=== PATIENT | female | born 1965 | race Caucasian/White ===

== ENCOUNTER 2017-11-30 21:57 | Emergency (ER) | payer BC ==
[2017-11-30 22:18] LABS: BILIRUBIN,URINE NEGATIVE (NEGATIVE); GLUCOSE, URINE (UA) NEGATIVE (NEGATIVE); KETONES,URINE (UA) 15 mg/dL (NEGATIVE); LEUKOCYTE ESTERASE, URINE SMALL (NEGATIVE); NITRITE,URINE POSITIVE (NEGATIVE); OCCULT BLOOD,URINE LARGE (NEGATIVE); PH,URINE 5.5 PH (5.0-7.5); PROTEIN,URINE 100 mg/dL (NEGATIVE); UROBILINOGEN,URINE 0.2 (NORMAL) E.U./dL (NORMAL)
[2017-11-30 22:21] LABS: CLARITY,URINE BLOODY (CLEAR)
[2017-11-30 22:26] LABS: BACTERIA,URINE Many /HPF (None Seen); RBC,URINE TNTC /HPF (0-5); SQUAMOUS EPITHELIAL CELL,UR FEW Squamous (<= Few)
[2017-11-30] MEDS ORDERED: NITROFURANTOIN MACRO 100 MG CAPSULE PO STA (22:30)
[2017-11-30] MEDS ORDERED: PHENAZOPYRIDINE 100 MG TABLET PO STA ×2 (22:30→22:51)
--- NOTE | 2017-11-30 22:32 | ED Physician Documentation ---
PD HPI FEMALE - Stated complaint Stated Complaint: FEMALE - Chief complaint Chief Complaint: Abd Pain - History obtained from History obtained from: Patient - History of Present Illness Timing - onset: Today Timing - duration: Days (1) Timing - details: Gradual onset Pain level max: 5 Pain level max: 3 Associated symptoms: Dysuria, Urinary frequency. No: Fever, Chest/shoulder pain , Abdominal pain, Back pain, Vaginal bleeding, Vaginal discharge Similar symptoms before: Diagnosis (UTI) - Additional information Additional information: worse with urination. pyridium has helped in the past. Review of Systems Constitutional: denies: Fever GI: denies: Vomiting : denies: Discharge PD PAST MEDICAL HISTORY - Past Medical History Past Medical History: Yes Other Past Medical History: UTI - Present Medications Home Medications: Ambulatory Orders Medication Instructions Recorded Confirmed Cetirizine [ZyrTEC] 10 mg PO DAILY 11/30/17 11/30/17 Ibuprofen 1 - 2 tab PO DAILY 11/30/17 11/30/17 Naproxen Sodium [Aleve] 1 - 2 tab PO DAILY 11/30/17 11/30/17 Nitrofurantoin Monohyd/M-Cryst 100 mg PO BID #10 capsule 11/30/17 [Macrobid 100 mg Capsule] Phenazopyridine HCl [Pyridium] 200 mg PO TID PRN #6 tablet 11/30/17 - Allergies Allergies/Adverse Reactions: Allergies Allergy/AdvReac Type Severity Reaction Status Date / Time No Known Drug Allergies Allergy Verified 11/30/17 22:02 - Social History Does the pt smoke?: No Smoking Status: Never smoker Does the pt drink ETOH?: No Does the pt have substance abuse?: No - Immunizations Immunizations are current?: Yes PD ED PE NORMAL - Vitals Vital signs reviewed: Yes - General General: Alert and oriented X 3, No acute distress - HEENT HEENT: Moist mucous membranes - Neck Neck: Supple, no meningeal sign - Cardiac Cardiac: RRR - Respiratory Respiratory: No respiratory distress, Clear bilaterally - Abdomen Abdomen: Soft, Non tender, Non distended - Back Back: No CVA TTP - Derm Derm: Warm and dry - Neuro Neuro: Alert and oriented X 3 - Psych Psych: Normal mood, Normal affect Results - Vitals Vitals: Vital Signs - 24 hr 11/30/17 11/30/17 22:00 22:58 Temperature 36.0 C L 36.6 C Heart Rate 80 91 Respiratory 15 16 Rate Blood Pressure 137/64 H 150/86 H O2 Saturation 100 99 Oxygen O2 Source Room air - Labs Labs: Laboratory Tests 11/30/17 22:12 Urine Color RED/BLOODY Urine Clarity BLOODY Urine pH 5.5 Ur Specific Latta 1.025 Urine Protein 100 H Urine Glucose (UA) NEGATIVE Urine Ketones 15 H Urine Occult Blood LARGE H Urine Nitrite POSITIVE H Urine Bilirubin NEGATIVE Urine Urobilinogen 0.2 (NORMAL) Ur Leukocyte Esterase SMALL H Urine RBC TNTC H Urine WBC >25 H Ur Squamous Epith Cells FEW Squamous Urine Bacteria Many H Ur Microscopic Review INDICATED Urine Culture Comments INDICATED PD MEDICAL DECISION MAKING - ED course Complexity details: reviewed results, considered differential, d/w patient ED course: Patient is a 52-year-old female with what appears to be an uncomplicated UTI. Will place on antibiotics and Pyridium for home. She is well-appearing, nontoxic. Afebrile. Patient counseled regarding signs and symptoms for which I believe and urgent re-evaluation would be necessary. Patient with good understanding of and agreement to plan and is comfortable going home at this time This document was made in part using voice recognition software. While efforts are made to proofread this document, sound alike and grammatical errors may occur. Departure - Departure Disposition: 01 Home, Self Care Clinical Impression: Urinary tract infection Qualifiers: Urinary tract infection type: acute cystitis Hematuria presence: without hematuria Qualified Code(s): N30.00 - Acute cystitis without hematuria Condition: Good Instructions: ED UTI Cystitis Female Follow-Up: lAbert Lira DO [Primary Care Provider] - As Needed Prescriptions: Nitrofurantoin Monohyd/M-Cryst [Macrobid 100 mg Capsule] 100 mg PO BID #10 capsule Phenazopyridine HCl [Pyridium] 200 mg PO TID PRN #6 tablet PRN Reason: dysuria Comments: Take all antibiotics until gone. Return if you worsen. Discharge Date/Time: 11/30/17 23:06
[2017-11-30 22:59] VITALS: BP 150/86
== END 2017-11-30 23:06 | disposition home or self-care (01) ==
LOC: ED 21:57
DX: N30.00 Acute cystitis without hematuria (principal)
CPT/HCPCS: 81001; 87086; 87181; 99283; A9270; 81003

== ENCOUNTER 2019-05-14 08:00 | Outpatient (CLI) | payer BC | END 2019-05-14 23:59 | disposition home or self-care (01) | LOC: LAB.R 08:00 | PROVIDERS: ATTEND Family Medicine | DX: N39.0 Urinary tract infection, site not specified (principal) | CPT/HCPCS: 87086; 87181 ==

== ENCOUNTER 2019-09-04 13:00 | Outpatient (CLI) | payer BC | END 2019-09-04 23:59 | disposition home or self-care (01) | LOC: LAB.R 13:00 | PROVIDERS: ATTEND Family Medicine | DX: N39.0 Urinary tract infection, site not specified (principal) | CPT/HCPCS: 87086 ==

== ENCOUNTER 2019-12-16 07:00 | Outpatient (CLI) | payer BC, OTHER | END 2019-12-16 23:59 | disposition home or self-care (01) | LOC: LAB.R 07:00 | PROVIDERS: ATTEND Family Medicine | DX: N39.0 Urinary tract infection, site not specified (principal); N81.10 Cystocele, unspecified | CPT/HCPCS: 87086 ==

== ENCOUNTER 2021-08-17 08:00 | Outpatient (CLI) | payer OTHER | END 2021-08-17 23:59 | disposition home or self-care (01) | LOC: LAB.WCP 08:00 | PROVIDERS: ATTEND Family Medicine | DX: U07.1 COVID-19 (principal) ==

== ENCOUNTER 2022-01-09 08:11 | Day surgery (SDC) | payer OTHER ==
[2022-01-09] MEDS ORDERED: LACTATED RINGERS 1,000 ML IV ONE ×2 (08:18→12:38)
[2022-01-09] MEDS ORDERED: SCOPOLAMINE PATCH TOP ONE (09:36)
[2022-01-09] MEDS ORDERED: ONDANSETRON 4 MG/2 ML VIAL IVP PRN ×2 (09:40→12:32)
[2022-01-09] MEDS ORDERED: MORPHINE 2 MG/ML CARPUJECT IVP PRN (09:40)
[2022-01-09] MEDS ORDERED: ePHEDrine 50 MG/ML VIAL IVP PRN (09:40)
[2022-01-09] MEDS ORDERED: ATROPINE ABBOJECT 1 MG/10 ML SYRINGE IVP PRN (09:40)
[2022-01-09] MEDS ORDERED: HYDROmorphone 0.5 MG/0.5 ML SYRINGE IVP PRN (09:40)
[2022-01-09] MEDS ORDERED: NALOXONE 0.4 MG/ML VIAL IVP PRN (09:40)
[2022-01-09] MEDS ORDERED: METOCLOPRAMIDE 10 MG/2 ML VIAL IVP PRN (09:40)
[2022-01-09] MEDS ORDERED: fentaNYL 100 MCG/2 ML VIAL IVP PRN (09:40)
--- NOTE | 2022-01-09 09:40 | ANESTHESIA ---
Pre-Anesthesia VS, & Labs - Diagnosis L breast CA - Procedure L breast lumpectomy with axillary node dissection Vital Signs: Temp Pulse Resp BP Pulse Ox 36.4 C L 89 16 155/83 H 98 01/09/22 08:26 01/09/22 08:26 01/09/22 08:26 01/09/22 08:26 01/09/22 08:26 Height: 5 ft 6 in Weight (kg): 104 kg Body Mass Index: 37.0 BMI Classification: Obese - NPO >8 hours - Is Patient ?: No - Lab Results Current Lab Results: Laboratory Tests 01/09/22 08:49: POC Whole Bld Glucose 108 H Home Medications and Allergies Home Medications: Ambulatory Orders Anastrozole 1 mg PO DAILY 12/30/21 Oxybutynin [Ditropan] 5 mg PO DAILY 12/30/21 Anastrozole 1 mg PO DAILY 12/30/21 Oxybutynin [Ditropan] 5 mg PO DAILY 12/30/21 Allergies/Adverse Reactions: Allergies Allergy/AdvReac Type Severity Reaction Status Date / Time No Known Drug Allergies Allergy Verified 11/30/17 22:02 Anes History & Medical History - Anesthetic History Anesthesia Complications: reports: No previous complications Family history of Anesthesia Complications: Denies Family history of Malignant Hyperthermia: Denies - Medical History Cardiovascular: reports: None Pulmonary: reports: None Gastrointestinal: reports: None Urinary: reports: None Musculoskeletal: reports: None Endocrine/Autoimmune: reports: Other Skin: reports: None Smoking Status: Unknown if ever smoked History of Cancer?: Yes (L breast CA) - Surgical History General: reports: Other Gynecologic: reports: Hysterectomy Exam General: Alert, Oriented x3, Cooperative Dental: WNL Mouth Openin Fingerbreadth Neck Mobility: Normal Mallampati classification: I Thyromental Distance: 4-6 cm Respiratory: Lungs clear Cardiovascular: Regular rate Plan Anesthesia Type: General Consent for Procedure(s) Verified and Reviewed: Yes Code Status: Attempt Resuscitation ASA classification: 3-Severe systemic disease Is this case an emergency?: No
[2022-01-09] MEDS ORDERED: SCOPOLAMINE PATCH TOP SCH (10:00)
[2022-01-09] MEDS ORDERED: LACTATED RINGERS 1,000 ML IV SCH (10:00)
[2022-01-09] MEDS ORDERED: PROPOFOL 200 MG/20 ML VIAL IVP ONE (10:19)
[2022-01-09] MEDS ORDERED: LIDOCAINE-MPF 2% 5 ML VIAL ONE (10:19)
[2022-01-09] MEDS ORDERED: fentaNYL 100 MCG/2 ML VIAL ONE (11:22)
[2022-01-09] MEDS ORDERED: MIDAZOLAM 2 MG/2 ML VIAL ONE (11:22)
[2022-01-09] MEDS ORDERED: LIDOCAINE 2%-EPI 1:100000 20 ML MDV ONE ×2 (11:31→12:14)
[2022-01-09] MEDS ORDERED: BUPIVACAINE 0.5% PF 10 ML VIAL ONE ×3 (11:31→12:14)
[2022-01-09] MEDS ORDERED: ONDANSETRON 4 MG/2 ML VIAL ONE (11:42)
[2022-01-09] MEDS ORDERED: DEXAMETHASONE 4 MG/ML VIAL ONE (11:42)
[2022-01-09] MEDS ORDERED: ceFAZolin 1 GM VIAL ONE (11:44)
[2022-01-09] MEDS ORDERED: BUPIVACAINE 0.5% PF 30 ML VIAL SUBQ ONE ×2 (11:55)
[2022-01-09] MEDS ORDERED: LIDOCAINE 2%-EPI 1:100000 20 ML MDV SUBQ ONE ×2 (11:55)
[2022-01-09] MEDS ORDERED: HYDROmorphone 1 MG/ML CARPUJECT ONE (12:11)
[2022-01-09] MEDS ORDERED: ROCURONIUM 50 MG/5 ML VIAL ONE (12:19)
[2022-01-09] MEDS ORDERED: oxyCODONE 5 MG TABLET PO PRN (12:32)
[2022-01-09] MEDS ORDERED: ACETAMINOPHEN 325 MG TABLET PO PRN (12:32)
[2022-01-09] MEDS ORDERED: IBUPROFEN 600 MG TABLET PO PRN (12:32)
--- NOTE | 2022-01-09 12:32 | OPERATIVE REPORT ---
Operative Report - General Planned Procedure: Left breast lumpectomy and sentinel node dissection Pre-Op Diagnosis: Left breast cancer Procedure Performed: Left breast lumpectomy and sentinel node dissection Post Op Diagnosis: Left breast cancer - Procedure Note Primary Surgeon: Richard Anesthesia Provider: ALVA Roa Pathology: 1. Boswell node number 1-10-second count of 8824 2. Boswell node number 2-10-second count of 17,563 3. Left breast mass-Marked with a short stitch superior, long stitch lateral, and double stitch anterior. Estimated Blood Loss (mL): 10 Indications: Biopsy-proven left breast cancer Left axillary lymph node biopsy negative for tumor Findings: 2 sentinel nodes with counts noted above Complications: None apparent - Other Other Information/Narrative: After obtaining informed consent, the patient was brought to the operating room and placed in the supine position on the operating table. Following successful induction of general endotracheal anesthesia, appropriate padding of all bony prominences, and placement of appropriate monitors, the left breast was prepped and draped in the standard surgical fashion. A timeout was held per scope protocol. All elements of the surgical safety checklist were followed before, during, and after the procedure. We began the procedure with a sentinel node dissection. The site of the brightest node had been marked in radiology with 2 skin marker axis. The neoprobe was used to identify the site of greatest uptake at level 2 in the patient's axilla. The patient is quite thin and has minimal axillary tissue. An incision was created over this area of uptake and carried through the skin and subcutaneous tissue to enter the axillary node packet. The first sentinel node was easily identified. It was large and firm. It was carefully dissected free from surrounding stop structures sharply, all lymphatics and vasculature were addressed with clips prior to division. The node was liberated into the field. 10-second counts are recorded. Survey of the axilla revealed continued high uptake. A second sentinel node was identified just posterior to the first. Again it was addressed in the same manner. It was gently retracted and sharply freed from the surrounding structures. All lymphatics and vasculature were dressed with hemoclips and the node was liberated. It was delivered into the field and a 10-second count was obtained. Survey of the axilla did not reveal any additional areas of increased uptake. Background in the axilla was checked and found to be 13-16. Background in the room was 0. The axillary incision was then closed in 2 layers with Vicryl and Monocryl sutures. We turned our attention to the left breast mass. The area over the mass and in the periareolar region was infiltrated with a mixture of local anesthetics to cry to field block. A periareolar incision was then created in the Palpable mass carefully dissected sharply from the subcutaneous tissue anteriorly and from the muscle posteriorly. The retromammary bursa was not adherent to the underlying muscle. The mass was reviewed moved in a single piece in a medial to lateral fashion. It was marked with a short stitch superior, long stitch lateral, and double stitch anterior. It was finally liberated sharply and delivered into the field. The wound was checked for hemostasis. It was irrigated again with warm water. The biopsy cavity was then marked with clips peripherally and centrally.The wound was then closed in 2 layers with Vicryl and Monocryl sutures. All sponge, needle, and instrument counts were correct at the conclusion of the case. The patient was let awakened anesthesia without difficulty and taken to the postanesthesia care unit in good condition.
[2022-01-09 14:11] VITALS: BP 131/79
--- NOTE | 2022-01-09 15:17 | ANESTHESIA POST OP EVALUATION ---
Anesthesia Post Eval - Post Anesthesia Eval Vitals: Last Vital Signs Temp 36.3 C L 01/09/22 14:10 Pulse 71 01/09/22 14:10 Resp 16 01/09/22 14:10 BP 131/79 H 01/09/22 14:10 Pulse Ox 98 01/09/22 14:10 CV Function Including HR & BP: Stable Pain Control: Satisfactory Nausea & Vomiting: Negative Mental Status: Baseline Respiratory Status: Airway Patent Hydration Status: Satisfactory Anesthesia Complications: None
--- NOTE | 2022-01-10 09:36 | Nuclear Medicine Report ---
PROCEDURE: Lymph Node Scintigraphy INDICATIONS: LT BREAST CA RADIOPHARMACEUTICAL: 0.5-1.0 mCi Millipore filtered Tc-99m sulfur colloid. TECHNIQUE: The area around the nipple was prepped and draped in a sterile fashion. Tc-99m sulfur colloid was in jected intra-dermally in the outer edge of the areola in the left breast. Images were obtained subse quently. A body contour outline was obtained. FINDINGS: There are 2 lymph node(s) in the ipsilateral axilla, which is marked on the skin and the images for [facility]. Possible intramammary lymph nodes. IMPRESSION: Two lymph nodes in the left axilla. Reviewed by: Rory Rosario MD on 01/10/2022 9:35 AM PST Approved by: Rory Rosario MD on 01/10/2022 9:35 AM [facility] [[email or web address]] Station ID: [id number]
--- NOTE | 2022-01-16 08:57 | XRAY Report ---
SPECIMEN LEFT BREAST: 01/09/2022 CLINICAL: Left breast specimen. No prior exams were available for correlation. A lumpectomy specimen was imaged for the previous biopsy site located in the left breast at 6 o'cloc k posterior depth. IMPRESSION: SPECIMEN The imaged specimen includes a biopsy clip. Future imaging is recommended as follows: 03/23/2022 follow-up left ultrasound. This exam was interpreted at Station ID: [id number]. Anthony ventura/penrad:01/16/2022 08:32:26 copy to: Annamarie Che Mammogram recall n/a B
== END 2022-01-09 08:12 | disposition home or self-care (01) ==
LOC: SDS 08:11
PROVIDERS: ATTEND Surgery
PROC: 0HBU0ZZ Excision of Left Breast, Open Approach (ICD-10-PCS; principal; 2022-01-09 10:45)
PROC: 07B60ZX Excision of Left Axillary Lymphatic, Open Approach, Diagnostic (ICD-10-PCS; 2022-01-09 10:45)
DX: C50.912 Malignant neoplasm of unspecified site of left female breast (principal); E66.9 Obesity, unspecified; Z68.37 Body mass index [BMI] 37.0-37.9, adult; E11.9 Type 2 diabetes mellitus without complications; Z79.84 Long term (current) use of oral hypoglycemic drugs
CPT/HCPCS: 19301; 38525; 78195; J1170; J3490; J7120

== ENCOUNTER 2022-02-03 13:22 | Outpatient (CLI) | payer OTHER ==
--- NOTE | 2022-02-03 13:59 | XRAY Report ---
PROCEDURE: Foot 3 View LT INDICATIONS: PAIN IN LEFT FOOT TECHNIQUE: 3 views of the foot were acquired. COMPARISON: None. FINDINGS: BONES: Diffuse osteopenia. No acute, displaced fracture or dislocation. Hallux valgus. Joint space lo ss with osteophytosis and fibrocystic change of the first MTP. Small calcaneal enthesophytes. SOFT TISSUES: Dorsal soft tissue prominence about the midfoot. IMPRESSION: 1.No acute osseous abnormality. Reviewed by: Yuri Hyde MD on 02/03/2022 1:58 PM PDT Approved by: Yuri Hyde MD on 02/03/2022 1:58 PM PDT Station ID: [id number]
== END 2022-02-03 23:59 | disposition home or self-care (01) ==
LOC: DI.N 13:22
PROVIDERS: ATTEND Nurse Practitioner Family
DX: M79.672 Pain in left foot (principal)

== ENCOUNTER 2022-02-13 08:41 | Outpatient (CLI) | payer OTHER ==
--- NOTE | 2022-02-13 11:07 | Nuclear Medicine Report ---
PROCEDURE: MUGA Cardiac Imaging INDICATIONS: L BREAST CA RADIOPHARMACEUTICAL: 30.5 mCi Tc-99m labeled autologous red cells IV. TECHNIQUE: After intravenous administration of autologous labeled WBC, TURKMEN views of the chest were obtained. A region of interest was drawn around the left ventricle to calculate left ventricle ejection fraction. COMPARISON: None available. FINDINGS: The heart and great vessels are of normal size and configuration. The left ventricle contracts manolo lly, with left ventricle ejection fraction of 57.1%. Normal ejection fractions for this study are ab ove 55%. A drop from baseline ejection fraction of greater than 10 percentage points or to below 45% on follow-up studies may be considered significant. IMPRESSION: The left ventricular ejection fraction is 57.1%. Reviewed by: Rory Rosario MD on 02/13/2022 11:06 AM PDT Approved by: Rory Rosario MD on 02/13/2022 11:06 AM PDT Station ID: [id number]
== END 2022-02-13 08:42 | disposition home or self-care (01) ==
LOC: DI 08:41
PROVIDERS: ATTEND Internal Medicine Hematology & Oncology
DX: C50.812 Malignant neoplasm of overlapping sites of left female breast (principal)
CPT/HCPCS: 78803; A9512; A9538

== ENCOUNTER 2022-02-14 07:15 | Day surgery (SDC) | payer OTHER ==
[2022-02-14] MEDS ORDERED: LACTATED RINGERS 1,000 ML IV ONE ×2 (07:50→10:24)
--- NOTE | 2022-02-14 08:04 | ANESTHESIA ---
Pre-Anesthesia VS, & Labs - Diagnosis left breast cancer - Procedure Portacath placement Vital Signs: Temp Pulse Resp BP Pulse Ox 36.7 C 79 20 146/74 H 99 02/14/22 07:32 02/14/22 07:32 02/14/22 07:32 02/14/22 07:32 02/14/22 07:32 Height: 5 ft 6 in Weight (kg): 104 kg Body Mass Index: 37.0 BMI Classification: Obese - NPO >8 hours - Is Patient ?: No - Lab Results Current Lab Results: Laboratory Tests 02/14/22 07:43: POC Whole Bld Glucose 119 H Lab results reviewed: Yes Home Medications and Allergies Home Medications: Ambulatory Orders Acetaminophen [Tylenol] 650 mg PO Q6H PRN 02/07/22 Cetirizine [ZyrTEC] 10 mg PO DAILY 02/07/22 Ibuprofen [Motrin] 600 mg PO DAILY 02/14/22 metFORMIN [Glucophage] 500 mg PO BIDWM 02/14/22 Anastrozole 1 mg PO DAILY 12/30/21 Oxybutynin [Ditropan] 5 mg PO BID 12/30/21 Lidocaine/Prilocain 2.5% Cream [Emla 2.5% Cream] 1 applic TOP PRN PRN 02/06/22 OLANZapine [Olanzapine] 5 mg PO DAILY PM 02/06/22 Ondansetron Odt [Zofran Odt] 8 mg TL Q8HR PRN 02/06/22 Prochlorperazine Maleate [Compazine] 10 mg PO Q6HR PRN 02/06/22 dexAMETHasone [Decadron] 4 mg PO BID 02/06/22 Acetaminophen [Tylenol] 650 mg PO Q6H PRN 02/07/22 Cetirizine [ZyrTEC] 10 mg PO DAILY 02/07/22 Ibuprofen [Motrin] 600 mg PO DAILY 02/14/22 metFORMIN [Glucophage] 500 mg PO BIDWM 02/14/22 Allergies/Adverse Reactions: Allergies Allergy/AdvReac Type Severity Reaction Status Date / Time No Known Drug Allergies Allergy Verified 11/30/17 22:02 Anes History & Medical History - Anesthetic History Anesthesia Complications: reports: No previous complications Family history of Anesthesia Complications: Denies Family history of Malignant Hyperthermia: Denies - Medical History Cardiovascular: reports: None Pulmonary: reports: None Gastrointestinal: reports: None Urinary: reports: None Musculoskeletal: reports: None Endocrine/Autoimmune: reports: Other Skin: reports: None Smoking Status: Unknown if ever smoked - Surgical History General: reports: Other Gynecologic: reports: Hysterectomy Exam General: Alert, Oriented x3, Cooperative, No acute distress Dental: WNL Mouth Openin Fingerbreadth Plan Anesthesia Type: General, MAC, Total IV Consent for Procedure(s) Verified and Reviewed: Yes Code Status: Attempt Resuscitation ASA classification: 2-Mild systemic disease Is this case an emergency?: No
[2022-02-14] MEDS ORDERED: BUPIVACAINE 0.25% PF 30 ML VIAL ONE (08:30)
[2022-02-14] MEDS ORDERED: LIDOCAINE 2%-EPI 1:100000 20 ML MDV ONE (08:42)
[2022-02-14] MEDS ORDERED: MIDAZOLAM 2 MG/2 ML VIAL ONE (08:47)
[2022-02-14] MEDS ORDERED: ONDANSETRON 4 MG/2 ML VIAL ONE (08:47)
[2022-02-14] MEDS ORDERED: PROPOFOL 200 MG/20 ML VIAL IVP ONE (08:47)
[2022-02-14] MEDS ORDERED: DEXAMETHASONE 4 MG/ML VIAL ONE (08:47)
[2022-02-14] MEDS ORDERED: fentaNYL 100 MCG/2 ML VIAL ONE (08:47)
[2022-02-14] MEDS ORDERED: LIDOCAINE 2%-EPI 1:100000 20 ML MDV SUBQ ONE (09:31)
[2022-02-14] MEDS ORDERED: BUPIVACAINE 0.25% PF 30 ML VIAL SUBQ ONE (09:31)
[2022-02-14] MEDS ORDERED: ceFAZolin 1 GM VIAL ONE (09:33)
--- NOTE | 2022-02-14 10:24 | XRAY Report ---
PROCEDURE: OR Port-A-Cath INDICATIONS: PORT TECHNIQUE: 2 fluoroscopic images of the chest COMPARISON: None. FINDINGS: A right portacatheter is seen with distal portion projecting over the SVC region. IMPRESSION: Right lamonte catheter as detailed above. Reviewed by: Yuri Hyde MD on 02/14/2022 10:22 AM PDT Approved by: Yuri Hyde MD on 02/14/2022 10:22 AM PDT Station ID: [id number]
[2022-02-14] MEDS ORDERED: NALOXONE 0.4 MG/ML VIAL IVP PRN (10:28)
[2022-02-14] MEDS ORDERED: ATROPINE ABBOJECT 1 MG/10 ML SYRINGE IVP PRN (10:28)
[2022-02-14] MEDS ORDERED: MORPHINE 2 MG/ML CARPUJECT IVP PRN (10:28)
[2022-02-14] MEDS ORDERED: ePHEDrine 50 MG/ML VIAL IVP PRN (10:28)
[2022-02-14] MEDS ORDERED: METOCLOPRAMIDE 10 MG/2 ML VIAL IVP PRN (10:28)
[2022-02-14] MEDS ORDERED: HYDROmorphone 0.5 MG/0.5 ML SYRINGE IVP PRN ×2 (10:28→10:59)
[2022-02-14] MEDS ORDERED: ONDANSETRON 4 MG/2 ML VIAL IVP PRN ×2 (10:28→10:59)
[2022-02-14] MEDS ORDERED: fentaNYL 100 MCG/2 ML VIAL IVP PRN (10:28)
--- NOTE | 2022-02-14 10:57 | OPERATIVE REPORT ---
Operative Report - General Procedure Date: 02/14/22 Planned Procedure: Right subclavian Port-A-Cath placement Pre-Op Diagnosis: Left breast cancer requiring chemotherapy Procedure Performed: Right subclavian Port-A-Cath placement Post Op Diagnosis: Same - Procedure Note Primary Surgeon: Dereje Kapoor MD Anesthesia Provider: Renetta Hoffman CRNA Anesthesia Technique: General LMA, Local (10 mL of 2% lidocaine with epinephrine and 10 mL of 0.25% Marcaine) IV Fluids (mL): 1,000 Estimated Blood Loss (mL): 2 Drain/Tube Type: Other (None.) Indications: As above. Findings: Fluoroscopy confirmed good placement of the catheter in the supra cardiac vena cava as well as there was good and easy blood return and flush. Complications: None. - Other Other Information/Narrative: After verbal and written informed consent was obtained detailing the operation, the alternatives the operation including no operation, risks of infection, bleeding requiring transfusion with its risks, nerve injury, and and after I met with the patient confirming the surgery and the site of surgery, the patient was brought to the operative suite and placed supine on the operating table. Great care was taken to avoid pressure points to prevent pressure necrosis or nerve injury. Monitoring devices were applied along with TEDs and pneumatic compression stockings (to prevent DVT). The patient received preoperative antibiotics for surgical prophylaxis. Renetta Hoffman CRNA sedated and anesthetized the patient for the entire procedure. The patient was prepped and draped in the usual sterile manner. A "time in" then confirmed that the patient was identified with 3 identifiers (name, date, and medical record number), the history and physical was updated and in the chart, the signed consent confirming the procedure was in the chart, the patient was in the correct position, the aforementioned prophylactic measures were in place or given, we had the correct personnel and equipment to complete the procedure and that anesthesia and the surgical team were given an opportunity to express any concerns. With the agreement of everyone in the room we proceeded with the operation. After anesthetizing the left subclavian area with the local mix, the finder needle was inserted into the left subclavian vein and with good blood return the syringe was removed and a wire placed. The wire went to 30 cm with some cardiac irritability confirming placement down towards the heart. The needle was removed and the needle insertion site widened with the aid of a scalpel and a Jodi. The port site was selected further down and slightly laterally on the chest wall and this was anesthetized again using half percent Marcaine. A transverse incision was made and dissection was carried out down to the fascia using Bovie electrocautery. Hemostasis was obtained using Bovie electrocautery. The pouch was then created primarily using blunt dissection and again using Bovie electrocautery for hemostasis. The catheter was obtained and attached to the passer. The passer was then used to pass the catheter from the needle insertion site to the port site. The catheter was then measured against the anterior chest wall and cut at 24 cm which allowed for the tip to be 2 cm below the manubrial-sternal junction. The catheter was then secured to the port using the supplied hub. The port and catheter were then flushed using heparinized saline. The port was put in position in the pouch and secured to the fascia using a 3-0 Prolene suture. Great care was taken to ensure that the catheter was not kinked. The dilator was placed over the wire taking great care to ensure that the wire was always visible. The dilator was removed and wiped down using a saline soaked gauze. The dilator and sheath were then placed over the wire again taking great care to ensure that the wire was always visible. The dilator and wire were then removed leaving the sheath in position. The catheter was then placed into the sheath using DeBakey pickups and while holding the catheter in place the sheath was torn away leaving the catheter in position. A Last needle was then used to access the port and there was excellent blood return and easy flush. Fluoroscopy showed the catheter to be in good position in the supracardiac vena cava without pneumothorax. The port site subcutaneous tissues were approximated using an interrupted 3-0 Vicryl suture. The skin incision was approximated with 4-0 Monocryl in a subcuticular fashion. The skin was cleaned of its prep and Dermabond was applied. At this point a timeout was performed that confirmed that all counts were correct x2, the procedure that was performed, the blood loss, the IV fluids administered, the patient's condition, and any concerns of the operating team had. Having tolerated the procedure well, the patient was taken recovery room in good and stable condition. The plan is for outpatient discharge when the patient is adequately recovered. This document was created in part using voice recognition technology. Because of the inherent limitations of the system, occasional same sounding word substitutions and grammatical errors do occur and persist despite proofreading. Please read this document for content.
[2022-02-14] MEDS ORDERED: HYDROcod/ACETAM 5/325 MG TABLET PO PRN (10:59)
[2022-02-14] MEDS ORDERED: LACTATED RINGERS 1,000 ML IV SCH (11:00)
--- NOTE | 2022-02-14 11:31 | ANESTHESIA POST OP EVALUATION ---
Anesthesia Post Eval - Post Anesthesia Eval Vitals: Last Vital Signs Temp 36.7 C 02/14/22 11:15 Pulse 68 02/14/22 11:15 Resp 17 02/14/22 11:15 BP 131/72 H 02/14/22 11:15 Pulse Ox 96 02/14/22 11:15 CV Function Including HR & BP: Stable Pain Control: Satisfactory Nausea & Vomiting: Negative Mental Status: Baseline Respiratory Status: Airway Patent Hydration Status: Satisfactory Anesthesia Complications: None
[2022-02-14 11:46] VITALS: BP 135/75
--- NOTE | 2022-02-14 13:28 | XRAY Report ---
PROCEDURE: Post Port Placement 1V CXR INDICATIONS: POST PORT PLACEMENT TECHNIQUE: One view of the chest was acquired. COMPARISON: None FINDINGS: Surgical changes and devices: Right-sided Port-A-Cath tip near the cavoatrial junction Lungs and pleura: No pleural effusions or pneumothorax. Lungs are clear. Mediastinum: Mediastinal contours appear normal. Heart size is normal. Bones and chest wall: No suspicious bony lesions. Overlying soft tissues appear unremarkable. IMPRESSION: Right-sided Port-A-Cath in place without pneumothorax. Reviewed by: Eric Fairbanks MD on 02/14/2022 12:26 PM [facility]AS[facility] Approved by: Eric Fairbanks MD on 02/14/2022 12:26 PM [facility] Station ID: [id number]
== END 2022-02-14 07:16 | disposition home or self-care (01) ==
LOC: SDS 07:15
PROVIDERS: ATTEND Surgery
DX: C50.912 Malignant neoplasm of unspecified site of left female breast (principal); E66.9 Obesity, unspecified; Z68.37 Body mass index [BMI] 37.0-37.9, adult; Z86.16 Personal history of COVID-19
CPT/HCPCS: 36561; C1788; J7120

== ENCOUNTER 2022-02-27 12:48 | Emergency (ER) | payer OTHER ==
--- OUTSIDE RECORDS SUMMARY | 2022-02-27 13:15 | EXTERNAL MEDICAL SUMMARY RPT | Continuity of Care Document ---
:1965 Author Organization [facility] Address [address] [place] [address] Phone Care Team Providers Name Role Phone Scheidt Unavailable Unavailable Allergies No information. Encounters No information. Medications No information. Problems date description facility [id number] Malignant neoplasm of unspecified site of [facility] breast Results No information.
[2022-02-27] MEDS ORDERED: SODIUM CHLORIDE 0.9% 1,000 ML IV STA (15:02)
--- NOTE | 2022-02-27 15:05 | ED Physician Documentation ---
History of Present Illness - Stated complaint Stated Complaint: CHEST DISCOMFORT - Chief complaint Chief Complaint: Cardiac - History obtained from History obtained from: Patient - History of Present Illness Timing: Today Pain level max: 0 Pain level now: 0 - Additonal information Additional information: Patient is a 56-year-old female, currently undergoing chemotherapy for breast cancer. First chemotherapy was last week. Came into the [facility] [place] clinic for chemotherapy today and was complaining of "a sensation of waves" in her chest. Nothing makes it better or worse. No pain. No shortness of breath. No nausea or vomiting. No headache. No neck pain. She states that she has been tolerating her first round of chemotherapy well. No significant side effects. No cardiac history. She states she is diabetic but does not check her blood sugars at home. They did not check her blood sugar today. Patient states that she is asymptomatic if she is sitting down, but will feel the wavelike sensation if she stands up. Review of Systems Constitutional: denies: Fever, Chills Nose: denies: Rhinorrhea / runny nose, Congestion Respiratory: denies: Cough GI: denies: Abdominal Pain, Nausea, Vomiting, Diarrhea Skin: denies: Rash Musculoskeletal: denies: Neck pain, Back pain Neurologic: denies: Headache PD PAST MEDICAL HISTORY - Past Medical History Cardiovascular: None Respiratory: None Endocrine/Autoimmune: Other GI: None : None HEENT: Chronic vision loss Psych: None Musculoskeletal: None Derm: None - Past Surgical History General: Other /[employer]: Hysterectomy - Present Medications Home Medications: Ambulatory Orders Medication Instructions Recorded Confirmed Anastrozole 1 mg PO DAILY 12/30/21 02/20/22 Oxybutynin [Ditropan] 5 mg PO BID 12/30/21 02/20/22 Lidocaine/Prilocain 2.5% Cream 1 applic TOP PRN PRN 02/06/22 02/20/22 [Emla 2.5% Cream] OLANZapine [Olanzapine] 5 mg PO DAILY PM 02/06/22 02/20/22 Ondansetron Odt [Zofran Odt] 8 mg TL Q8HR PRN 02/06/22 02/20/22 Prochlorperazine Maleate 10 mg PO Q6HR PRN 02/06/22 02/20/22 [Compazine] dexAMETHasone [Decadron] 4 mg PO BID 02/06/22 02/20/22 Acetaminophen [Tylenol] 650 mg PO Q6H PRN 02/07/22 02/20/22 Cetirizine [ZyrTEC] 10 mg PO DAILY 02/07/22 02/20/22 Docusate Sodium 250Mg Capsule 250 mg PO DAILY #10 cap 02/14/22 02/20/22 [Colace 250Mg Capsule] HYDROcod/ACETAM 5/325 [[place] 5/325] 1 each PO Q4H #5 tablet 02/14/22 02/20/22 Ibuprofen [Motrin] 600 mg PO DAILY 02/14/22 02/20/22 metFORMIN [Glucophage] 500 mg PO BIDWM 02/14/22 02/20/22 - Allergies Allergies/Adverse Reactions: Allergies Allergy/AdvReac Type Severity Reaction Status Date / Time No Known Drug Allergies Allergy Verified 02/27/22 13:08 - Social History Does the pt smoke?: No Smoking Status: Never smoker Does the pt drink ETOH?: No Does the pt have substance abuse?: No - Immunizations Immunizations are current?: Yes PD ED PE NORMAL - Vitals Vital signs reviewed: Yes - General General: Alert and oriented X 3, No acute distress - HEENT HEENT: Moist mucous membranes - Neck Neck: Supple, no meningeal sign - Cardiac Cardiac: RRR - Respiratory Respiratory: No respiratory distress, Clear bilaterally - Abdomen Abdomen: Soft, Non tender, Non distended - Derm Derm: Warm and dry - Extremities Extremities: No edema, No calf tenderness / cord - Neuro Neuro: Alert and oriented X 3 Results - Vitals Vitals: Vital Signs - 24 hr 02/27/22 02/27/22 02/27/22 12:57 16:14 18:00 Temperature 36.6 C 36.6 C Heart Rate 126 H 89 98 Respiratory 16 22 16 Rate Blood Pressure 139/79 H 127/78 167/80 H O2 Saturation 96 98 99 02/27/22 20:01 Temperature 36.6 C Heart Rate 110 H Respiratory 16 Rate Blood Pressure 128/76 O2 Saturation 98 Oxygen O2 Source Room air - EKG (time done) 1302 Rate: Rate (enter#) (119) Rhythm: Sinus tachycardia [place]: Normal Intervals: Normal [place] QRS: Normal Ischemia: T wave inversion (III) Compare to prior EKG: Old EKG unavailable - Labs Labs: Laboratory Tests 02/27/22 02/27/22 02/27/22 15:08 15:08 15:08 WBC 4.3 L RBC 4.25 Hgb 12.7 Hct 38.0 MCV 89.4 MCH 29.9 MCHC 33.4 RDW 12.8 Plt Count 142 MPV 9.5 Neut # (Auto) Not Reportable Lymph # (Auto) Not Reportable Sebastian # (Auto) Not Reportable Eos # (Auto) Not Reportable Baso # (Auto) Not Reportable Absolute Nucleated RBC Not Reportable Total Counted 100 Band Neuts % (Manual) 3 Reactive Lymphs % (Man) 13 Abnorm Lymph % (Manual) 0 Nucleated RBC % Not Reportable Neutrophils # (Manual) 1.4 L Lymphocytes # (Manual) 2.0 Monocytes # (Manual) 0.6 Eosinophils # (Manual) 0.3 Basophils # (Manual) 0.0 Differential Comment MANUAL DIFFERENTIAL WBC Morphology NORMAL APPEARANCE Platelet Estimate NORMAL (130-450,000) Platelet Morphology NORMAL APPEARANCE RBC Morph Micro Appear NORMAL APPEARANCE Sodium 136 Potassium 4.3 Chloride 100 L Carbon Dioxide 26 Anion Gap 10.0 BUN 13 Creatinine 0.6 Estimated GFR (MDRD) 103 Glucose 117 H POC Whole Bld Glucose Calcium 9.3 Total Bilirubin 0.6 AST 11 ALT 16 Alkaline Phosphatase 76 Troponin I High Sens 14.4 Total Protein 6.5 L Albumin 3.7 Globulin 2.8 Albumin/Globulin Ratio 1.3 Lipase 27 02/27/22 15:26 WBC RBC Hgb Hct MCV MCH MCHC RDW Plt Count MPV Neut # (Auto) Lymph # (Auto) Sebastian # (Auto) Eos # (Auto) Baso # (Auto) Absolute Nucleated RBC Total Counted Band Neuts % (Manual) Reactive Lymphs % (Man) Abnorm Lymph % (Manual) Nucleated RBC % Neutrophils # (Manual) Lymphocytes # (Manual) Monocytes # (Manual) Eosinophils # (Manual) Basophils # (Manual) Differential Comment WBC Morphology Platelet Estimate Platelet Morphology RBC Morph Micro Appear Sodium Potassium Chloride Carbon Dioxide Anion Gap BUN Creatinine Estimated GFR (MDRD) Glucose POC Whole Bld Glucose 102 H Calcium Total Bilirubin AST ALT Alkaline Phosphatase Troponin I High Sens Total Protein Albumin Globulin Albumin/Globulin Ratio Lipase - Rads (name of study) cxr Radiology: Final report received, EMP read contemporaneously, See rad report CTPA Radiology: Final report received, EMP read contemporaneously, See rad report PD MEDICAL DECISION MAKING - ED course Complexity details: reviewed results, re-evaluated patient, considered aliciae eddie, d/w patient ED course: Unclear etiology the patient's symptoms. Possible reaction to her chemotherapy. No acute findings of acute coronary syndrome, pulmonary embolus. No pneumothorax. Feels better after IV fluids. We will have the patient follow-up with her oncologist for further care. Patient counseled regarding signs and symptoms for which I believe and urgent re-evaluation would be necessary. Patient with good understanding of and agreement to plan and is comfortable going home at this time This document was made in part using voice recognition software. While efforts are made to proofread this document, sound alike and grammatical errors may occur. Departure - Departure Disposition: 01 Home, Self Care Clinical Impression: Tachycardia Condition: Good Instructions: ED Chest Pain Atypical Unkn Cause Follow-Up: Albert Lira DO [Primary Care Provider] - Within 1 week Comments: The cause of your symptoms is unclear today, but are likely related to the chemotherapy. Please follow-up with your doctor for further care. Return if you worsen. Discharge Date/Time: 02/27/22 19:55
[2022-02-27 15:13] LABS: BASOPHILS % (AUTO) 1.6 %; EOSINOPHILS % (AUTO) 7.4 %; HGB - HEMOGLOBIN 12.7 g/dL (12.0-16.0); LYMPHOCYTES % (AUTO) 48.1 %; MEAN CORPUSCULAR HEMOGLOBIN 29.9 pg (27.0-31.0); MEAN CORPUSCULAR HGB CONC 33.4 g/dL (32.0-36.0); MEAN CORPUSCULAR VOLUME 89.4 fL (81.0-99.0); MEAN PLATELET VOLUME 9.5 fL (7.9-10.8); MONOCYTES % (AUTO) 11.9 %; NEUTROPHILS % (AUTO) 27.5 %; PLT - PLATELET COUNT 142 10^3/uL (130-450); RED BLOOD COUNT 4.25 10^6/uL (4.20-5.40); RED CELL DISTRIBUTION WIDTH 12.8 % (12.0-15.0); WHITE BLOOD COUNT 4.3 x10^3/uL (4.8-10.8)
[2022-02-27 15:17] LABS: ABNORMAL LYMPHS % (MANUAL) 0 %
--- NOTE | 2022-02-27 15:23 | XRAY Report ---
PROCEDURE: Chest 1 View X-Ray INDICATIONS: Chest Pain TECHNIQUE: One view of the chest was acquired. COMPARISON: 02/14/2022 FINDINGS: Surgical changes and devices: Right chest wall Port-A-Cath tip is in SVC. Surgical clips are seen in left axilla. Lungs and pleura: No pleural effusions or pneumothorax. Lungs are clear. Mediastinum: Mediastinal contours appear normal. Heart size is normal. Bones and chest wall: No suspicious bony lesions. Overlying soft tissues appear unremarkable. IMPRESSION: No acute cardiopulmonary pathology. Reviewed by: Anthony Olvera MD on 02/27/2022 3:22 PM PDT Approved by: Anthony Olvera MD on 02/27/2022 3:22 PM PDT Station ID: [id number]
[2022-02-27 15:41] LABS: ALBUMIN 3.7 g/dL (3.2-5.5); ALBUMIN/GLOBULIN RATIO 1.3 (1.0-2.2); BILIRUBIN,TOTAL 0.6 mg/dL (0.2-1.0); CALCIUM 9.3 mg/dL (8.5-10.3); CREATININE 0.6 mg/dL (0.4-1.0); POTASSIUM 4.3 mmol/L (3.5-5.0); TOTAL PROTEIN 6.5 g/dL (6.7-8.2)
[2022-02-27 16:34] LABS: BAND NEUTROPHILS % (MANUAL) 3 %; EOSINOPHILS # (MANUAL) 0.3 10^3/uL (0-0.7); LYMPHOCYTES % (MANUAL) 34 %; MONOCYTES # (MANUAL) 0.6 10^3/uL (0.0-1.0); NEUTROPHILS # (MANUAL) 1.4 10^3/uL (1.5-6.6); REACTIVE LYMPHS % (MANUAL) 13 %
[2022-02-27 16:37] LABS: PLATELET ESTIMATE, MANUAL NORMAL (130-450,000) (NORMAL); PLATELET MORPHOLOGY NORMAL APPEARANCE (NORMAL); RBC MORPHOLOGY (MULTIPLE) NORMAL APPEARANCE (NORMAL); WBC MORPHOLOGY (MULTIPLE) NORMAL APPEARANCE (NORMAL)
[2022-02-27 16:39] LABS: DIFFERENTIAL COMMENT MANUAL DIFFERENTIAL
[2022-02-27] MEDS ORDERED: IOVERSOL 320 100 ML VIAL IVP ONE ×2 (17:15→18:18)
--- NOTE | 2022-02-27 18:48 | CT Report ---
PROCEDURE: ANGIO CHEST W/WO INDICATIONS: tachycardia, breast CA CONTRAST: IV CONTRAST: Optiray 320 ml: 80 PO CONTRAST: *NO PO CONTRAST TECHNIQUE: After the administration of intravenous contrast, 2 mm axial images were acquired from the pulmonary apices to the posterior costophrenic angles during the arterial phase. In addition, 1 mm lung kernel and 5 mm soft tissue kernel reconstructions were performed. 3-dimensional coronal oblique maximum int ensity projection (MIP) reformats, 8 mm axial MIP, and 5 mm coronal and sagittal MPR reformats were t hen performed through the thorax. For radiation dose reduction, the following was used: automated exp osure control, adjustment of mA and/or kV according to patient size. COMPARISON: Chest radiograph 02/27/2022 FINDINGS: Image quality: Excellent. Pulmonary arteries: Pulmonary arteries are normal in size, and demonstrate no intraluminal filling d efects to suggest central pulmonary embolism. Lungs and pleura: Peripheral subpleural reticular groundglass opacities are seen in both lungs with m ild subpleural sparing. No pleural effusions or pneumothorax. Central and peripheral airways are pa tent. Mediastinum: Heart size is normal, without pericardial effusion. No mediastinal or hilar adenopathy . Thoracic aorta is normal in caliber and enhancement. Esophagus is normal in caliber, with small h iatal hernia. Bones and chest wall: A right chest Port-A-Cath is seen with catheter tip in the lower right atrium, which appears more inferior when compared to the prior radiographs and may be related to arm positio marito. Surgical clips are seen in the left breast and left axilla. No axillary or supraclavicular alverto opathy. No suspicious bony lesions. The thyroid is normal in size. Abdomen: Liver is diffusely hypoattenuating, most likely secondary to fatty infiltration. A fat-cont aining hernia is seen at the posterior left lung base. Visualized upper abdominal solid organs appear normal in the early arterial phase of enhancement. IMPRESSION: 1.No acute pulmonary embolus. 2.Right chest Port-A-Cath is seen with catheter tip extending into the lower right atrium, which may be related to arm positioning given normal location on radiographs from earlier the same day. 3.Bilateral groundglass opacities may be related to drug toxicity or interstitial lung disease versus an atypical or viral pneumonia or less likely pulmonary edema. 4.Postsurgical changes in the left breast and left axilla. Findings were discussed with the referring physician, Dr. Hollingsworth, by telephone on 02/27/2022 at 6:45 P M. Reviewed by: Andrade Bolden MD on 02/27/2022 6:47 PM PDT Approved by: Andrade Bolden MD on 02/27/2022 6:47 PM PDT Station ID: [id number]
[2022-02-27 20:03] VITALS: BP 128/76
== END 2022-02-27 19:55 | disposition home or self-care (01) ==
LOC: ED 12:48
DX: R30.0 Dysuria (principal)
CPT/HCPCS: 36415; 71045; 71275; 80053; 83690; 84484; 85025; 93005; 99284; 99285; Q9967